=== PATIENT | male | born 1935 | race Caucasian/White ===

== ENCOUNTER 2016-09-08 11:47 | Inpatient (IN) | payer OTHER, MEDICARE ==
[~2016-09-08] VITALS: Ht 160 cm; Wt 81.6 kg
[~2016-09-08 11:47] MED LIST: ATORVASTATIN CA40 M1 PO; ATORVASTATIN CA40 MG PO; AUGMENTIN 875 M1 TAB PO; BACTRIM DS TAB1 EACH PO; CARBIDOPA AND L1 TA1 PO; CARBIDOPA-LEVO1 EAC7 PO; CENTRUM SILVER1 TAB PO; CLOPIDOGREL75 MG PO; FISH OIL CONCEN1 SGL PO; FUROSEMIDE20 MG PO; FUROSEMIDE40 M1 PO; GABAPENTIN300 M2 PO; GLIPIZIDE ER2.5 M1 PO; IRBESARTAN300 MG PO; LASIX40 M1 PO; LASIX40 MG PO; METFORMIN HCL500 MG PO; METOPROLOL SUCC25 M1 PO; METOPROLOL SUCC25 MG PO; PANTOPRAZOLE SO40 M1 PO; POTASSIUM CHLO20 ME2 PO; SERTRALINE HCL100 MG PO; VIBRAMYCIN100 MG PO
--- NOTE | 2016-09-08 11:51 | NUR ---
PT STATES HE TAKES LASIX AT HOME AND TOOK TODAYS DOSE, UNKNOWN DOSAGE
--- NOTE | 2016-09-08 11:51 | NUR ---
80 Y/O MALE STATES "I CAME TO GET LASIX". STATES SWELLING TO BILATERAL LEGS X 2-3 WEEKS. PT REPORTS WORSENING ITCHING TO LEGS; STATES HE CALLED HIS DOCTOR (DR CASTRO) AND WAS TOLD TO COME TO ED.
--- NOTE | 2016-09-08 12:25 | ED UPPER/LOWER EXTREMITY COMPL ---
See Addendum History of Present Illness General Chief Complaint: Lower Extremity Problems Stated Complaint: BILATERAL LEG SWELLING Source: patient, old records Exam Limitations: no limitations Vital Signs & Intake/Output Vital Signs & Intake/Output Vital Signs Date Time Temp Pulse Resp B/P Pulse O2 O2 Flow FiO2 Ox Delivery Rate 09/08 1614 94 18 185/89 95 09/08 1414 98.6 85 18 164/76 96 Room Air 09/08 1151 98.3 100 18 171/77 95 Room Air Allergies Uncoded Allergies: SOAP (Mild, RASH-DEODERANT SOAPS 03/10/15) Reconcile Medications Atorvastatin Calcium 40 MG TABLET 1 TAB PO DAILY CHOLESTEROL (Reported) Carbidopa/Levodopa (Carbidopa-Levodopa 25-100 Tab) 25 MG-100 MG TABLET 1 TAB PO BID PARKINSONS (Reported) Doxycycline Hyclate (Vibramycin) 100 MG CAPSULE 1 CAP PO BID INFN Furosemide 40 MG TABLET 2 TAB PO QAM DIURETIC (Reported) Furosemide (Lasix) 40 MG TABLET 1 TAB PO QPM DIURETIC (Reported) Gabapentin 300 MG CAPSULE 1 CAP PO QHS UNKNOWN (Reported) Glipizide (Glipizide ER) 2.5 MG TAB.ER.24 1 TAB PO BID DM (Reported) Metoprolol Succinate 25 MG TAB 1 TAB PO DAILY HEART/BP (Reported) Multivitamin and Ofioxgko238 (Centrum Silver) 1 TAB TAB 1 TAB PO DAILY SUPPLEMENT (Reported) Pantoprazole Sodium 40 MG TABLET.DR 1 TAB PO DAILY GI (Reported) Potassium Chloride 20 MEQ TAB.ER.PRT 1 TAB PO BID SUPPLEMENT (Reported) Sertraline HCl 100 MG TABLET 1 TAB PO DAILY MENTAL HEALTH (Reported) Triage Note: 80 Y/O MALE STATES "I CAME TO GET LASIX". STATES SWELLING TO BILATERAL LEGS X 2-3 WEEKS. PT REPORTS WORSENING ITCHING TO LEGS; STATES HE CALLED HIS DOCTOR (DR CASTRO) AND WAS TOLD TO COME TO ED. Triage Nurses Notes Reviewed? yes Onset: Gradual Duration: week(s): (1), constant, getting worse Timing: recent history Severity: moderate Severity Numbers: 7 Pain/Injury Location: Bilateral: Leg. Method of Injury: unknown No Modifying Factors: none Associated Symptoms: swelling, redness HPI: 80 Year old male with h/o htn, dm, hld, presents today for evaluation with his accounts payable coordinator complaining of bilateral leg pain and swelling. The patient was seen here last week for a right lower extremity cellulitis which she is currently on doxycycline for and states that it has been improving slowly however states that he noticed a new outbreak of redness warmth and pain to the left anterior santos. He was seen by his primary care physician earlier this week and was referred to the ER at that time for IV diuresis. He reports a subjective chills at home no fevers no chest pain no shortness of breath. No family history of congestive heart failure. He is on Lasix 40 mg a day . They state that the leg swelling has been chronic in nature however worse since the infection (KELLY BOWIE) Past History Travel History Traveled to [place] past 21 day No Medical History Any Pertinent Medical History? 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 Hx Contributory? No (KELLY BOWIE) Review of Systems Review of Systems Constitutional: Reports: no symptoms, see HPI. All Other Systems: Reviewed and Negative Comments Review of systems: See HPI, All other systems negative. Constitutional, no chills no fever, no malaise no weight loss HEENT: no sore throat no congestion, no ear pain Cardiovascular: No chest pain , no palpitation , no orthopnea no ankle swelling Skin, see HPI Respiratory: No dyspnea no cough no sputum no hemoptysis GI: No nausea no vomiting, no diarrhea, no bloating/constipation : No dysuria No hematuria, no frequency Muscle skeletal: No joint pain, no joint swelling, no back pain, no neck pain, Neurologic: No numbness no headache Psych: No stress no anxiety Heme/endocrine: No bruising no bleeding Immunology: No lymphadenopathy, (KELLY BOWIE) Physical Exam Physical Exam General Appearance: well developed/nourished, no apparent distress, alert Comments: Well-developed well-nourished person in no acute distress HEENT: Normal EENT exam; PERRL, EOMI. HEAD is atraumatic. moist mucous membranes. Neck: Supple, no lymphadenopathy, normal range of motion Back: Nontender, no CVA tenderness. Full range of motion Cardiovascular: Regular rate and rhythms no murmurs rubs Respiratory: Chest nontender.There were no bony deformities, no asymmetry. No respiratory distress. Patient speaking in full complete sentences. Breath sounds clear to auscultation bilaterally: NO W/R/R Abdomen: Soft, nontender nondistended, no appreciable organomegaly. Normal bowel sounds. No rebound/guarding, No appreciable enlargement of the abdominal aorta, No ascites. Extremity: 3+ edema to the right lower extremity 2+ edema to the left lower extremity, the anterior shins of bilateral lower extremities are erythematous warm tender to palpation with several blisters open and intact noted, full range of motion of extremities, 5 out of 5 strength noted to bilateral upper and lower extremities Neuro: Alert oriented x3, motor sensory normal, There were no obvious focal neurologic abnormalities. Skin: No appreciable rash on exposed skin, skin is warm and dry. Psych: Mood and affect is normal, memory and judgment is normal. (MARYBETH BROOKE,KELLY) Progress Differential Diagnosis: arterial insufficiency, CHF, contusion, DVT, sprain, ELECTROLYTE ABNORMALITY ACUTE KIDNEY INJURY Plan of Care: Orders Procedure Date/time Status Consistent Carbohydrate 3 09/09 B Active CBC WITHOUT DIFFERENTIAL 09/09 06 Active BASIC ELECTROLYTES PLUS BUN&CR 09/09 0600 Active Heart Healthy Diet 09/08 D Complete PHYSICIAN CONSULT 09/08 1831 Active Vital Signs 09/08 1729 Active Teach/Educate 09/08 1729 Active Nutritional Intake, Monitor 09/08 1729 Active Isolation 09/08 1729 Active Intake & Output 09/08 1729 Active Patient Care Conference 09/08 1729 Active Activity/Ambulation 09/08 1729 Active Pathway - chart 09/08 1628 Active Intake & Output 09/08 1500 Active Admit to inpatient 09/08 1423 Active Vital Signs 09/08 1423 Active Code Status 09/08 1423 Active Patient Data 09/08 1404 Active EKG 09/08 1326 Active BLOOD CULTURE 09/08 1239 Active COMPREHENSIVE METABOLIC PANEL 09/08 1218 Complete CBC WITHOUT DIFFERENTIAL 09/08 1217 Complete B-TYPE NATRIURETIC PEP (BNP) 09/08 121 Complete House Staff 09/08 UNK Active Wound Care/Dressing 09/08 UNK Active Elevate 09/08 UNK Active Current Medications Sig/Brent Start time Last Medication Dose Stop Time Status Admin Atorvastatin Calcium 40 MG DAILY 09/09 1000 AC (Lipitor) Furosemide 40 MG DAILY 09/09 1000 CANr (Lasix) 09/11 1001 Metoprolol Succinate 25 MG DAILY 09/09 1000 AC (Toprol XL) Sertraline HCl 100 MG DAILY 09/09 1000 AC (Zoloft) Omeprazole 40 MG DAILY AC 09/09 0700 AC (Prilosec) Ampicillin Sodium/ 1,500 MG Q12 09/08 2200 AC Sulbactam Sodium (Unasyn) Sodium Chloride 100 ML (Normal Saline 0.9%) Carbidopa/Levodopa 1 TAB BID 09/08 2200 AC (Sinemet 25/100MG) Gabapentin 300 MG AT BEDTIME 09/08 2200 AC (Neurontin) Heparin Sodium 5,000 UNIT Q8 09/08 2200 AC (Porcine) Acetaminophen 650 MG Q6P PRN 09/08 1630 AC (Tylenol) Hydromorphone HCl 0.5 MG Q4 PRN 09/08 1630 AC (Dilaudid) Oxycodone/ 1 TAB Q6P PRN 09/08 1630 AC Acetaminophen (Percocet) Laboratory Tests 09/08/16 1245: Anion Gap 13, Estimated GFR 32 L, BUN/Creatinine Ratio 14.0, Glucose 296 H, Calcium 9.0, Total Bilirubin 1.3, AST 21, ALT 22, Alkaline Phosphatase 136 H, Ytk-H-Svipupbpyub Pept 551 H, Total Protein 6.6, Albumin 3.6, Globulin 3.0, Albumin/Globulin Ratio 1.2, CBC w Diff NO MAN DIFF REQ, RBC 4.80, MCV 92.3, MCH 30.8, RDW 16.0 H, MPV 8.4, Gran % 64.1, Lymphocytes % 23.7, Monocytes % 8.7, Eosinophils % 2.9, Basophils % 0.6, Absolute Granulocytes 5.9, Absolute Lymphocytes 2.2, Absolute Monocytes 0.8 H, Absolute Eosinophils 0.3, Absolute Basophils 0.1, PUBS MCHC 33.4 Microbiology 09/08 1245 BLOOD: Blood Culture - RECD 09/08 1230 BLOOD: Blood Culture - RECD Labs ordered old records reviewed including patient's previous ultrasounds that showed no evidence of DVT. CASE D/W DR TAMAYO Old records reviewed patient's creatinine today is at baseline. I discussed with him at length all of his lab results given the patient lives at home alone worsening leg edema, and new rash to the left leg I believe premature discharge would BE medically harmful which she is in agreement with. I spoke with the patient's daughter over the phone. They are in agreement with plan (KELLY BOWIE) Diagnostic Imaging: Viewed by Me: Radiology Read. Discussed w/RAD: Radiology Read. Radiology Impression: PATIENT: BRINDA CHAVIRA PRESENT AGE: 80 PATIENT ACCOUNT NO: [id number] : 36 LOCATION: [facility] ORDERING PHYSICIAN: KELLY BROOKE SERVICE DATE: 09/08/16 EXAM TYPE: RAD - XRY- PORTABLE CHEST XRAY EXAMINATION: XR PORTABLE CHEST CLINICAL INFORMATION: Leg swelling. Malaise. COMPARISON: 03/10/2015 TECHNIQUE: Portable view of the chest was obtained. FINDINGS: Low lung volumes. No consolidation, edema, or effusion. No pneumothorax. The cardiomediastinal silhouette is unchanged, appearing prominent. Surgical clips are seen in the left cervical soft tissues. IMPRESSION : No acute pulmonary findings. Low lung volumes. DICTATED BY: KENYETTA PERSON MD DATE/TIME DICTATED:09/08/161321 FUEL EFFICIENT AUTOMOBILE DESIGNER:KENA DATE/TIME TRANSCRIBED:09/08/161321 CONFIDENTIAL, DO NOT COPY WITHOUT APPROPRIATE AUTHORIZATION. <Electronically signed in Other Vendor System> SIGNED BY: KENYETTA PERSON MD 09/08/161326 Initial ED EKG: normal intervals, normal p-waves, normal QRS complex, normal sinus rhythm (80) (KELLY BOWIE) Departure Departure Time of Disposition: 1407 Disposition: STILL A PATIENT Condition: Stable Clinical Impression Primary Impression: Cellulitis Secondary Impressions: Leg edema Referrals: LISSETT CASTRO MD (PCP/Family) Departure Forms: Customer Survey General Discharge Information Admission Note Spoke With: LEIA REAL MD Documentation of Exam: Documentation of any treatments & extenuating circumstances including Concerns Regarding Discharge (functional status, medication knowledge or non-compliance, living conditions, etc.) that warrant an admission rather than observation: Premature discharge would BE medically harmful given patient has been on a home course of antibiotics symptoms are worsening, despite being on home antibiotics and by mouth diuresis patient will require TRENDING labs IV diuresis IV antibiotics wound care consult] (MARYBETH BROOKE,KELLY) PA/MERCHANDISE WORKER Co-Sign Statement Statement: ED Attending supervision documentation- [X] I saw and evaluated the patient. I have also reviewed all the pertinent lab results and diagnostic results. I agree with the findings and the plan of care as documented in the PA's/MERCHANDISE WORKER's documentation. [] I have reviewed the ED Record and agree with the PA's/MERCHANDISE WORKER's documentation. [] Additions or exceptions (if any) to the PAs/MERCHANDISE WORKER's note and plan are summarized below: [] (SERGIO TAMAYO DO
--- NOTE | 2016-09-08 13:02 | NUR ---
PT NOTED TO HAVE REDNESS AND SWELLING TO BILATERAL LOWER EXTREMTIES. NOTED WITH OPEN WOUND TO TOP OF R YATES. +PEDAL PULSES BILATERALLY, PT C/O PAIN TO BILATERAL LOWER LEGS.
--- NOTE | 2016-09-08 13:15 | NUR ---
LABS DRAWN AND SENT AND 2 SETS OF CULTURES. BLUE,SST,LAV
[2016-09-08 13:23] LABS: ABSOLUTE BASOPHIL COUNT 0.1 /CUMM (0.0-0.2); ABSOLUTE EOSINOPHIL COUNT 0.3 /CUMM (0.0-0.7); ABSOLUTE GRANULOCYTE CT 5.9 /CUMM (1.4-6.5); ABSOLUTE LYMPH COUNT 2.2 /CUMM (1.2-3.4); ABSOLUTE MONOCYTE COUNT 0.8 /CUMM (0.10-0.60); BASOPHIL % 0.6 % (0.0-2.0); EOSINOPHIL % 2.9 % (0-5); GRANULOCYTE % 64.1 % (42.2-75.2); HEMATOCRIT 44.3 % (42-52); MEAN CORPUSCULAR HGB 30.8 PG (27.0-31.0); MEAN CORPUSCULAR HGB CONC 33.4 G/DL (33.0-37.0); MEAN CORPUSCULAR VOLUME 92.3 FL (80.0-94.0); MEAN PLATELET VOLUME 8.4 FL (7.4-10.4); PLATELET COUNT 205 /CUMM (130-400); WHITE BLOOD CELL COUNT 9.2 /CUMM (4.8-10.8)
--- NOTE | 2016-09-08 13:27 | RADIOLOGY REPORT ---
EXAMINATION: XR PORTABLE CHEST CLINICAL INFORMATION: Leg swelling. Malaise. COMPARISON: 03/10/2015 TECHNIQUE: Portable view of the chest was obtained. FINDINGS: Low lung volumes. No consolidation, edema, or effusion. No pneumothorax. The cardiomediastinal silhouette is unchanged, appearing prominent. Surgical clips are seen in the left cervical soft tissues. IMPRESSION: No acute pulmonary findings. Low lung volumes.
--- NOTE | 2016-09-08 14:14 | NUR ---
PT MEDICATED PER EMAR AT THIS TIME. PT RESTING ON STRETCHER, AWARE OF PLAN FOR ADMISSION.
--- NOTE | 2016-09-08 14:27 | History & Physical ---
ANILA ZARCO,[facility] 09/08/16 1427: General Information and HPI History of Present Illness: Mr. Layne is a 79-year-old gentleman with a past medical history significant for PVD, CAD s/p right carotid artery endarterectomy, HTN, HLD, stroke, NIDDM, CKD stage 3B, Parkinson's disease and depression, last admitted in [place] in March 2015 for chronic venous insufficiency, who presented with a new onset of erythema and edema with mild tenderness and pruritis in the left lower extremity since yesterday. Patient presented to [place] ED on 08/30 and 09/01 with cellulitis of the RLE. He was discharged back on doxycycline which he had already been prescribed by Dr. Castro outpatient. He reports that he has been taking the antibiotics since 08/30/[address] [facility] up until today (patient unsure how many days). Patient feels that the cellulitis in his right leg has been improving but it is still weeping with blisters. He takes Lasix 80mg in the morning and 40mg at night for CVI but his legs are more swollen than his baseline per the patient. He follows up with Dr. Blanco for his leg wounds but has not seen him in a long time (can't remember how long). Patient denies any fever, chills, chest pain/discomfrt, palptiations, shortness of breath, abdominal pain, nausea, vomiting, recent sick contact/illness/travel. Patient lives alone at home. He has 2 aids who help him with daily activities including cooking and grocery shopping. He uses walker at home. He denies any alcohol/tobacco/recreational drug use. Of note, patient is a poor historian. A significant amount of history was gathered from the previous medical records. PCP - Dr. Castro Wound care - Dr. Blanco Air Intercept Controller - Dr. Christian Allergies/Medications Allergies: Uncoded Allergies: SOAP (Mild, RASH-DEODERANT SOAPS 03/10/15) Home Med list Atorvastatin Calcium 40 MG TABLET 1 TAB PO DAILY CHOLESTEROL (Reported) Carbidopa/Levodopa (Carbidopa-Levodopa 25-100 Tab) 25 MG-100 MG TABLET 1 TAB PO BID PARKINSONS (Reported) Doxycycline Hyclate (Vibramycin) 100 MG CAPSULE 1 CAP PO BID INFN Furosemide 40 MG TABLET 2 TAB PO QAM DIURETIC (Reported) Furosemide (Lasix) 40 MG TABLET 1 TAB PO QPM DIURETIC (Reported) Gabapentin 300 MG CAPSULE 1 CAP PO QHS UNKNOWN (Reported) Glipizide (Glipizide ER) 2.5 MG TAB.ER.24 1 TAB PO BID DM (Reported) Metoprolol Succinate 25 MG TAB 1 TAB PO DAILY HEART/BP (Reported) Multivitamin and Lgovmtim399 (Centrum Silver) 1 TAB TAB 1 TAB PO DAILY SUPPLEMENT (Reported) Pantoprazole Sodium 40 MG TABLET.DR 1 TAB PO DAILY GI (Reported) Potassium Chloride 20 MEQ TAB.ER.PRT 1 TAB PO BID SUPPLEMENT (Reported) Sertraline HCl 100 MG TABLET 1 TAB PO DAILY MENTAL HEALTH (Reported) Past History Travel History Traveled to [place] past 21 day No Medical History Neurological: CVA, essential tremor EENT: NONE Cardiovascular: CAD, hypertension, hyperlipidemia, PVD Respiratory: NONE Gastrointestinal: NONE Hepatic: cholelithiasis Renal: NONE Musculoskeletal: NONE Psychiatric: insomnia Endocrine: diabetes Blood Disorders: NONE Cancer(s): NONE 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 Psychosocial History Where do you live? Home Who Do You Live With? child Services at Home: None Primary Language: Telugu ETOH Use: denies use Illicit Drug Use: denies illicit drug use Functional Ability ADLs Independent: eating. Needs Assist: dressing, toileting, bathing. Ambulation: walker IADLs Independent: telephone. Needs Assist: shopping, housework, finances, food prep, transportation, medication admin. Review of Systems Review of Systems Constitutional: Reports: see HPI. Exam & Diagnostic Data Last 24 Hrs of Vital Signs/I&O Vital Signs Date Time Temp Pulse Resp B/P Pulse O2 O2 Flow FiO2 Ox Delivery Rate 09/08 1414 98.6 85 18 164/76 96 Room Air 09/08 1151 98.3 100 18 171/77 95 Room Air Intake & Output 09/08 1600 09/08 0800 09/08 0000 Intake Total Output Total 200 Balance -200 Output, Urine 200 Patient 81.647 kg Weight Physical Exam General Appearance Alert, Oriented X3, Cooperative, No Acute Distress Skin - RLE: circumferential erythema with weeping wounds with size decreased from previous visit about a week ago; 2+ pitting edema with no TTP. Constanza's sign negative. - LLE: small erythema with warmth to touch and no TTP. 1+ pitting edema. No active drainage or weeping. HEENT Atraumatic, PERRLA, EOMI, Mucous Membr. moist/pink Neck Supple, No JVD, No LAD Cardiovascular Regular Rate, Normal S1, Normal S2, No Murmurs, Gallops, Rubs Lungs Clear to Auscultation, Normal Air Movement Abdomen Normal Bowel Sounds, Soft, No Tenderness Neurological Normal Speech, Strength at 5/5 X4 Ext, Sensation Intact, Cranial Nerves 3-12 NL Extremities No Cyanosis, Normal Pulses, 2+ pitting edema in RLE, 1+ in LLE Assessment/Plan Assessment: Mr. Layne is a 79-year-old gentleman with a past medical history significant for PVD, CAD s/p right carotid artery endarterectomy, HTN, HLD, stroke, NIDDM, CKD stage 3B, Parkinson's disease and depression, last admitted in [place] in March 2015 for chronic venous insufficiency, who presented with a new onset of erythema and edema with mild tenderness and pruritis in the left lower extremity for 1 day, most likely 2/2 cellulitis. # Cellulitis His lower extremity edema and erythema are most likely 2/2 cellulitis superimposed on chronic erythematous vesicular lesions in the setting of chronic venous insufficiency/edema. Patient received 1 doses of IV Lasix 40mg in ED. * Admit to General Medicine floor * Vitals per protocol, monitor hemodynamics * Keep oxygen saturation more than 92% * Keep legs elevated * Give another dose of Lasix 40 mg IV - adjust the dose tomorrow depending on clinical status and renal function * Wound consult * Adequate pain control with IV Dilaudid 0.4mg Q4P severe pain and Percocet 1tab Q6P moderate pain * Doppler venous of both LEs - r/o DVT # Cardiac history: HTN, HLD Patient has a h/o hypertension. In the ED patient's systolic blood pressure is in the range of 160-180s. * Continue home med metoprolol XL 25 mg daily * Continue home med Lipitor 40 mg daily * Lasix as per above-mentioned plan # Diabetes * Novolog SSI with accuchecks before each meal and at bedtime * Diabetic diet * Cont home med gabapentin 300mg PO qHS for neuropathic pain # History of Parkinson's disease & Depression * Cont home med Carbidopa/Levodopa 1 tab QD * Cont home med Zoloft 100mg PO daily - Diabetic diet - Mild pain pathway - DVT prophylaxis: SQ heparin - DNR/DN As Ranked By This Provider Problem List: 1. Leg edema 2. Hypertension 3. Diabetes 4. DVT prophylaxis 5. Parkinson disease 6. Venous stasis dermatitis of both lower extremities 7. Hypokalemia 8. Cellulitis 9. Chronic ulcer of leg 10. Cellulitis 11. Dependent edema 12. Leg edema Core Measures/Miscellaneous Acute Coronary Syndrome ACS Diagnosis: No Cerebrovascular Accident CVA/TIA Diagnosis: No Congestive Heart Failure CHF Diagnosis: No Venous Thromboembolism VTE Risk Factors: Age > 40 VTE Prophylaxis Ordered Inpt: Pharm- Heparin No Mech VTE prophylaxis d/t: LE Edema No VTE Pharm Prophylaxis d/t: No contraindications VTE Diagnosis: No VTE Type: NONE VTE Confirmed by (Test): NONE Severe Sepsis Severe Sepsis Present: No Septic Shock Septic Shock Present: No Miscellaneous Documentation Attending Case Discussed With: LEIA REAL MD Primary Care Physician: LISSETT CASTRO MD A Patient sees these Specialists Dr. Blanco for wound Level of Patient Care: General Medicine JAMAAL ZARCO,[facility] 09/08/16 1755: Attending MD Review Statement Attending Statement Attending MD Statement: examined this patient, discuss w/resident/PA/BOATSWAIN'S MATE, agreed w/resident/PA/BOATSWAIN'S MATE, reviewed EMR data (avail), discussed with nursing, discussed with case mgmt, amended to note Attending Assessment/Plan: Patient is an 81-year-old male with history of extensive vascular disease who presents with complaints of right lower extremity erythema and edema that has been going on since August 30. He had similar presentation in January 2016. Though he does admit to some improvement of the erythema in the right lower extremity since initiating antibiotic therapy reports arthritis has only worsened leading to significant excoriation huber and now he is developing a similar rash under left lower extremity. According to the patient swelling and excretion associated that the elevated is ambulatory status post his presentation to the emergency room again. This huber his third visit to the ER. It is noted that he does have a history of dermatitis for which he is to see a cash register servicer in the past. On examination he is afebrile and hemodynamically stable. He is nontoxic looking. He has bilateral lower extremity edema with extensive erythema, excoriation huber and some peeling of the skin on the right lower extremity. The area of erythema however has improved compared to the area marked during his prior ER visits. He also has a mild area of erythema along the left santos which the patient reports as being new. Laboratory data shows evidence of his chronic kidney disease. He has no leukocytosis. Due to limitation of his ambulatory status was referred inpatient medical service for further management. Problems: 1. Bilateral lower extremity cellulitis 2. Deconditioning 3. Chronic kidney disease stage III Recommendations: -Admit to the inpatient general service for further management. -Due to the new area of erythema developing left lower extremity would treat empirically with IV antibiotics for now and reevaluate over the weekend. -His bilateral lower extremity edema is likely contributing to his skin changes. We'll diurese with Lasix IV for now. He is on a total of 120 mg daily at home. We'll diurese with an additional 40 mg IV of Lasix today and reevaluate his clinical status and renal function tomorrow before further diuresis. -Dopplers of bilateral lower extremities to rule out DVT. -DVT prophylaxis with heparin subcutaneous. MIN FREED MD 09/08/166: Resident Review Statement Resident Statement: examined this patient, discussed with transportation logistics internship, agreed with transportation logistics internship Other Findings: Assessment 1. Cellulitis of both lower extremities (with weeping Ulcers) 2. T2 DM 3. Parkinson's disease 4. PVD 5. Stage 3B CKD Plan Admit to IV Unasyn Blood cultures x 2 Novolog SS Fingersticks TIDAC/HS Wound care consult IV lasix 40mg BID-monitor creatinine daily due to CKD Daily labs Continue his home medications PO benadryl-for itching of the LEs Adequate analgesia PT SQ heparin for DVT ppx Diabetic diet
--- NOTE | 2016-09-08 16:16 | NUR ---
PT RESTING ON STRETCHER, DINNER TRAY PROVIDED. PT OFFERS NO COMPLIANTS AT THIS TIME.
--- NOTE | 2016-09-08 16:34 | NUR ---
PT HAS BED ASSIGNMENT 209-1
--- NOTE | 2016-09-08 16:49 | NUR ---
REPORT GIVEN TO MYRNA SOSA.
--- NOTE | 2016-09-08 16:51 | NUR ---
DISTRIBUTION CALLED FOR PT TRNASPORT
[2016-09-08 19:17] VITALS: BP 152/80
--- NOTE | 2016-09-08 23:44 | ULTRASOUND REPORT ---
EXAMINATION: US TRIPLEX LOWER EXTREMITY, BILATERAL CLINICAL INFORMATION: Edema. Leg tenderness. COMPARISON: None. TECHNIQUE: Color-flow triplex imaging with spectral analysis and compression Doppler were performed on the bilateral lower extremities. FINDINGS: Respiratory variation, normal compression and augmented flow are noted throughout the bilateral lower extremities. The visualized common femoral vein, superficial femoral vein, profunda femoral vein, popliteal vein and mid calf peroneal and posterior tibial venous segments show no evidence of deep venous thrombosis. There is no Marr's cyst. IMPRESSION: Normal triplex scan without evidence of deep venous thrombosis involving the bilateral lower extremities.
--- NOTE | 2016-09-09 00:08 | NUR ---
PATIENT ARRIVED TO FLOOR AT 1708 FROM ER, DX CELLULITIS VS 98.2 93 22 152/80 91% ROOM AIR A&O, CAN BE CONFUSED AT TIMES, INDEPENDENT WITH CANE, UNSTEADY, BED ALARM IN PLACE BLE RED, ABRASIONS, CELLULITIC AREAS, R YATES OPEN AREA; KEEPING ALL FRANCISCO AT THIS TIME; +1 BLE EDEMA; OTHERWISE SKIN INTACT WILL USE URINAL, MAY BE INCONTINENT, BRIEF ON, PT STATES HE WEARS ONE AT HOME IV # 20 TO LH ORIENTED TO ROOM AND CALL GONSALEZ CONTINUE TO MONITOR
[2016-09-09 00:30] VITALS: BP 144/64
--- NOTE | 2016-09-09 07:28 | PN- Housestaff ---
See Addendum Subjective Follow-up For: Cellulitis Subjective: Patient seen and examined at bedside. No acute events overnight. His wound look slightly better with no active drainage/weeping. Patient reports feeling well with no new complaints. He remains alert, awake and oriented x 3, in no acute distress. Denies shortness of breath, cough, headache, fever, chills, chest pain , palpitations, nausea, vomiting, diarrhea, blurred/double vision, dizziness/ lightheadedness. Review of Systems Constitutional: Reports: see HPI. Objective Last 24 Hrs of Vital Signs/I&O Vital Signs Date Time Temp Pulse Resp B/P Pulse O2 O2 Flow FiO2 Ox Delivery Rate 09/09 0955 92 120/82 09/09 0832 98.1 93 20 140/75 92 Room Air 09/09 0030 98.1 89 20 144/64 95 09/08 1917 98.2 93 22 152/80 91 09/08 1614 94 18 185/89 95 09/08 1414 98.6 85 18 164/76 96 Room Air 09/08 1151 98.3 100 18 171/77 95 Room Air Intake & Output 09/09 1600 09/09 0800 09/09 0000 Intake Total 600 500 Output Total 325 1000 Balance 275 -500 Intake, Oral 600 500 Output, Urine 325 1000 Patient 81.647 kg Weight Physical Exam General Appearance: Alert, Oriented X3, Cooperative, No Acute Distress Other Physical Findings: Skin - RLE: circumferential erythema with weeping wounds with size decreased from previous visit about a week ago; 2+ pitting edema with no TTP. Constanza's sign negative. - LLE: small erythema with warmth to touch and no TTP. 1+ pitting edema. No active drainage or weeping. HEENT Atraumatic, PERRLA, EOMI, Mucous Membr. moist/pink Neck Supple, No JVD, No LAD Cardiovascular Regular Rate, Normal S1, Normal S2, No Murmurs, Gallops, Rubs Lungs Clear to Auscultation, Normal Air Movement Abdomen Normal Bowel Sounds, Soft, No Tenderness Neurological Normal Speech, Strength at 5/5 X4 Ext, Sensation Intact, Cranial Nerves 3-12 NL Extremities No Cyanosis, Normal Pulses, 2+ pitting edema in RLE, 1+ in LLE Current Medications: Current Medications Sig/Brent Start time Last Medication Dose Route Stop Time Status Admin Acetaminophen 650 MG Q6P PRN 09/08 1630 AC PO Ampicillin Sodium/ 1,500 MG Q12 09/08 2200 AC 09/09 Sulbactam Sodium IV 0956 Sodium Chloride 100 ML Ampicillin Sodium/ 1,500 MG ONCE ONE 09/08 1415 DC 09/08 Sulbactam Sodium IV 09/08 1444 1414 Sodium Chloride 100 ML Ampicillin Sodium/ 0 .STK-MED ONE 09/08 1409 DC Sulbactam Sodium .ROUTE Atorvastatin Calcium 40 MG DAILY 09/09 1000 AC 09/09 PO 0955 Carbidopa/Levodopa 1 TAB BID 09/08 2200 AC 09/09 PO 0955 Diphenhydramine HCl 25 MG Q6P PRN 09/09 0100 AC PO Furosemide 40 MG DAILY 09/09 1000 CAN IV 09/11 1001 Furosemide 40 MG ONCE ONE 09/08 1730 DC 09/08 IV 09/08 1731 1958 Furosemide 0 .STK-MED ONE 09/08 1409 DC IV Furosemide 40 MG ONCE ONE 09/08 1400 DC 09/08 IV 09/08 1401 1414 Gabapentin 300 MG AT BEDTIME 09/08 2200 AC 09/08 PO 2104 Heparin Sodium 5,000 UNIT Q8 09/08 2200 AC 09/09 (Porcine) SC 0700 Hydromorphone HCl 0.5 MG Q4 PRN 09/08 1630 AC IV Influenza Virus 0.5 ML ONCE ONE 09/08 2014 DC 09/08 Vaccine IM 09/08 2015 2105 Insulin Aspart 0 TIDAC/HS 09/09 0800 AC SC Metoprolol Succinate 25 MG DAILY 09/09 1000 AC 09/09 PO 0955 Omeprazole 40 MG DAILY AC 09/09 0700 AC 09/09 PO 0822 Oxycodone/ 1 TAB Q6P PRN 09/08 1630 AC Acetaminophen PO Patient Medication 1 UNIT ONE NR 09/08 1715 ME Teaching ED 09/08 1730 Patient Medication 1 UNIT ONE NR 09/08 1715 ME Teaching ED 09/08 1730 Patient Medication 1 UNIT ONE NR 09/08 1715 ME Teaching ED 09/08 1730 Patient Medication 1 UNIT ONE NR 09/08 1645 ME Teaching ED 09/08 1700 Patient Medication 1 UNIT ONE NR 09/08 1645 ME Teaching ED 09/08 1700 Sertraline HCl 100 MG DAILY 09/09 1000 AC 09/09 PO 0955 Last 24 Hrs of Lab/Corky Results Last 24 Hrs of Labs/Mics: Laboratory Tests 09/08/16 1245: Anion Gap 13, Estimated GFR 32 L, BUN/Creatinine Ratio 14.0, Glucose 296 H, Calcium 9.0, Total Bilirubin 1.3, AST 21, ALT 22, Alkaline Phosphatase 136 H, Buu-E-Tgznnwcmbcm Pept 551 H, Total Protein 6.6, Albumin 3.6, Globulin 3.0, Albumin/Globulin Ratio 1.2, CBC w Diff NO MAN DIFF REQ, RBC 4.80, MCV 92.3, MCH 30.8, RDW 16.0 H, MPV 8.4, Gran % 64.1, Lymphocytes % 23.7, Monocytes % 8.7, Eosinophils % 2.9, Basophils % 0.6, Absolute Granulocytes 5.9, Absolute Lymphocytes 2.2, Absolute Monocytes 0.8 H, Absolute Eosinophils 0.3, Absolute Basophils 0.1, PUBS MCHC 33.4 Microbiology 09/08 1245 BLOOD: Blood Culture - RECD 09/08 1230 BLOOD: Blood Culture - RECD Assessment/Plan Assessment: Mr. Layne is a 79-year-old gentleman with a past medical history significant for PVD, CAD s/p right carotid artery endarterectomy, HTN, HLD, stroke, NIDDM, CKD stage 3B, Parkinson's disease and depression, last admitted in [place] in March 2015 for chronic venous insufficiency, who presented with a new onset of erythema and edema with mild tenderness and pruritis in the left lower extremity for 1 day, most likely 2/2 cellulitis. # Cellulitis His lower extremity edema and erythema are most likely 2/2 cellulitis superimposed on chronic erythematous vesicular lesions in the setting of chronic venous insufficiency/edema. Patient received 1 doses of IV Lasix 80mg yesterday. Swelling is slightly better this morning. * Vitals per protocol, monitor hemodynamics * Keep legs elevated * Continue IV Lasix, dose to be determined depending on the renal function today * Wound consult * Adequate pain control with IV Dilaudid 0.4mg Q4P severe pain and Percocet 1tab Q6P moderate pain * Doppler venous of both LEs - no evidence of DVT # Cardiac history: HTN, HLD Patient has a h/o hypertension. In the ED patient's systolic blood pressure is in the range of 160-180s. * Continue home med metoprolol XL 25 mg daily * Continue home med Lipitor 40 mg daily * Lasix as per above-mentioned plan # Diabetes * Novolog SSI with accuchecks before each meal and at bedtime * Diabetic diet * Cont home med gabapentin 300mg PO qHS for neuropathic pain # History of Parkinson's disease & Depression * Cont home med Carbidopa/Levodopa 1 tab QD * Cont home med Zoloft 100mg PO daily - Diabetic diet - Mild pain pathway - DVT prophylaxis: SQ heparin - DNR/DN Problem List: 1. Leg edema 2. Chronic ulcer of leg 3. Cellulitis 4. Venous stasis dermatitis of both lower extremities 5. Diabetes 6. DVT prophylaxis 7. Parkinson disease 8. Hypertension Pain Ratin Pain Location: 0 Pain Goal: Remain pain free Pain Plan: Mild pain pathway Tomorrow's Labs & Rationales: CBC to monitor for signs of infection
[2016-09-09 08:32] VITALS: BP 140/75
[2016-09-09 12:33] LABS: ABSOLUTE BASOPHIL COUNT 0 /CUMM (0.0-0.2); ABSOLUTE EOSINOPHIL COUNT 0.2 /CUMM (0.0-0.7); ABSOLUTE GRANULOCYTE CT 6.6 /CUMM (1.4-6.5); ABSOLUTE LYMPH COUNT 0.9 /CUMM (1.2-3.4); ABSOLUTE MONOCYTE COUNT 0.6 /CUMM (0.10-0.60); BASOPHIL % 0.3 % (0.0-2.0); EOSINOPHIL % 2.6 % (0-5); GRANULOCYTE % 79.2 % (42.2-75.2); HEMATOCRIT 43.4 % (42-52); MEAN CORPUSCULAR HGB 30.6 PG (27.0-31.0); MEAN CORPUSCULAR VOLUME 92.6 FL (80.0-94.0); MEAN PLATELET VOLUME 8.4 FL (7.4-10.4); PLATELET COUNT 144 /CUMM (130-400); RED BLOOD CELL CT 4.69 /CUMM (4.70-6.10); WHITE BLOOD CELL COUNT 8.3 /CUMM (4.8-10.8)
[2016-09-09 16:10] VITALS: BP 130/64
[2016-09-10 00:02] VITALS: BP 132/60
[2016-09-10 08:30] VITALS: BP 130/57
--- NOTE | 2016-09-10 08:59 | PN- Housestaff ---
CHAY ZARCO,[facility] 09/10/16 0859: Subjective Follow-up For: Cellulitis Review of Systems Constitutional: Reports: see HPI. Objective Last 24 Hrs of Vital Signs/I&O Vital Signs Date Time Temp Pulse Resp B/P Pulse O2 O2 Flow FiO2 Ox Delivery Rate 09/10 1002 82 124/76 09/10 0830 98.5 87 20 130/57 94 Room Air 09/10 0002 98.3 94 20 132/60 91 09/09 1610 98.6 92 20 130/64 92 Room Air Intake & Output 09/10 1600 09/10 0800 09/10 0000 Intake Total 200 Output Total Balance 200 Intake, Oral 200 Physical Exam General Appearance: Alert, Oriented X3, Cooperative Skin: right lower extremity circumferential erythema with beeping wounds Cardiovascular: Regular Rate, Normal S1, Normal S2 Lungs: Clear to Auscultation, Normal Air Movement Abdomen: Normal Bowel Sounds, Soft, No Tenderness Neurological: Normal Speech, Strength at 5/5 X4 Ext Extremities: No Clubbing, No Cyanosis, 2+ edemand right lower leg and 1+ edema in left lower extremity Current Medications: Current Medications Sig/Brent Start time Last Medication Dose Route Stop Time Status Admin Acetaminophen 650 MG Q6P PRN 09/08 1630 AC PO Ampicillin Sodium/ 1,500 MG Q12H 09/10 1300 AC Sulbactam Sodium IV Sodium Chloride 100 ML Ampicillin Sodium/ 1,500 MG Q12 09/08 2200 DC 09/10 Sulbactam Sodium IV 0100 Sodium Chloride 100 ML Atorvastatin Calcium 40 MG DAILY 09/09 1000 AC 09/10 PO 1002 Carbidopa/Levodopa 1 TAB BID 09/08 2200 AC 09/10 PO 1002 Diphenhydramine HCl 25 MG Q6P PRN 09/09 0100 AC PO Furosemide 40 MG DAILY 09/09 1800 AC 09/10 IV 1002 Gabapentin 300 MG AT BEDTIME 09/08 2200 AC 09/10 PO 0641 Heparin Sodium 5,000 UNIT Q8 09/08 2200 AC 09/10 (Porcine) SC 0641 Hydromorphone HCl 0.5 MG Q4 PRN 09/08 1630 AC IV Insulin Aspart 0 TIDAC 09/10 1200 CAN SC Insulin Aspart 0 TIDAC 09/10 1200 AC 09/10 SC 1026 Insulin Aspart 0 TIDAC/HS 09/09 0800 DC 09/09 SC 2100 Insulin Aspart Prota 2 UNIT ONCE ONE 09/10 1030 DC 09/10 70%/Aspart 30% SC 09/10 1031 1029 Metoprolol Succinate 25 MG DAILY 09/09 1000 AC 09/10 PO 1002 Omeprazole 40 MG DAILY AC 09/09 0700 AC 09/10 PO 0641 Oxycodone/ 1 TAB Q6P PRN 09/08 1630 AC Acetaminophen PO Patient Medication 1 UNIT ONE NR 09/09 1830 DC Teaching ED 09/09 1900 Potassium Chloride 60 MEQ ONCE ONE 09/10 1000 DC 09/10 PO 09/10 1001 1004 Sertraline HCl 100 MG DAILY 09/09 1000 AC 09/10 PO 1002 Last 24 Hrs of Lab/Corky Results Last 24 Hrs of Labs/Mics: Laboratory Tests 09/10/16 0710: Anion Gap 13, Estimated GFR 34 L, BUN/Creatinine Ratio 14.7 Assessment/Plan Assessment: Mr. Layne is a 79-year-old gentleman with a past medical history significant for PVD, CAD s/p right carotid artery endarterectomy, HTN, HLD, stroke, NIDDM, CKD stage 3B, Parkinson's disease and depression, last admitted in [place] in March 2015 for chronic venous insufficiency, who presented with a new onset of erythema and edema with mild tenderness and pruritis in the left lower extremity for 1 day, most likely 2/2 cellulitis. # Cellulitis His lower extremity edema and erythema are most likely 2/2 cellulitis superimposed on chronic erythematous vesicular lesions in the setting of chronic venous insufficiency/edema. Patient received 1 doses of IV Lasix 80mg yesterday. Swelling is slightly better this morning. * Vitals per protocol, monitor hemodynamics * Keep legs elevated * Continue IV Lasix, dose to be determined depending on the renal function today * Wound consult * Adequate pain control with IV Dilaudid 0.4mg Q4P severe pain and Percocet 1tab Q6P moderate pain * Doppler venous of both LEs - no evidence of DVT # Cardiac history: HTN, HLD Patient has a h/o hypertension. In the ED patient's systolic blood pressure is in the range of 160-180s. * Continue home med metoprolol XL 25 mg daily * Continue home med Lipitor 40 mg daily * Lasix as per above-mentioned plan # Diabetes * Novolog SSI with accuchecks before each meal and at bedtime * Diabetic diet * Cont home med gabapentin 300mg PO qHS for neuropathic pain # History of Parkinson's disease & Depression * Cont home med Carbidopa/Levodopa 1 tab QD * Cont home med Zoloft 100mg PO daily - Diabetic diet - Mild pain pathway - DVT prophylaxis: SQ heparin - DNR/DN Problem List: 1. Venous stasis dermatitis of both lower extremities 2. Parkinson disease 3. DVT prophylaxis 4. Cellulitis 5. Chronic ulcer of leg 6. Hypertension Pain Ratin Pain Location: None Pain Goal: Remain pain free Pain Plan: Mildly any pathway Tomorrow's Labs & Rationales: none CHAY ZARCO,[facility] 09/10/16 1539: Attending MD Review Statement Attending Statement Attending MD Statement: examined this patient, discuss w/resident/PA/SHIPPING SPECIALIST, agreed w/resident/PA/SHIPPING SPECIALIST, discussed with nursing, reviewed images Attending Assessment/Plan: 79-year-old male with past medical history significant for peripheral vascular disease, coronary artery disease status post right carotid artery endarterectomy , hypertension, hyperlipidemia, stroke, and IDDM, CK D, Parkinson disease, depression is being admitted with lower extremity cellulitis for which he is currently receiving IV antibiotics. He is also diuresed gently given his underlying CKD. His lower extremity cellulitis seems to be improving. His kidney functions remained stable. His lower extremity Dopplers was negative for clots. We'll continue to diurese him as his kidney functions are improving. Potassium was replaced today, please follow-up tomorrow's chemistry for potassium and Cr.
--- NOTE | 2016-09-10 14:27 | RADIOLOGY REPORT ---
EXAMINATION: XR PORTABLE CHEST CLINICAL INFORMATION: Choking on food COMPARISON: 09/08/2016 and 03/06/2015 TECHNIQUE: AP portable semiupright view of the chest. Lordotic positioning. FINDINGS: Low lung volumes. No definite aspiration pneumonia. Chest wall structures obscure the lung bases. Patient rotated. Grossly stable prominence of the heart and mediastinum. IMPRESSION: Technically limited exam without focal aspiration or pneumonia identified.
[2016-09-10 15:55] VITALS: BP 140/64
--- NOTE | 2016-09-10 23:18 | NUR ---
FINGER STICK 298. ADDRESSED WITH DR. PORRAS PATIENT DOES NOT HAVE A BEDTIME SCALE.
[2016-09-11 00:12] VITALS: BP 138/60
--- NOTE | 2016-09-11 08:24 | Cons- Wound Care ---
General Information and HPI Consulting Request Date of Consult: 09/11/16 Requested By: BHAVESH HINTON M.D Reason for Consult: Concern over right lower extremity cellulitis History of Present Illness: Patient is 80-year-old with type 2 diabetes Parkinson's disease chronic venous insufficiency who is had right lower extremity venous stasis ulcers in the past. He's been treated with multiple courses of antibiotics for suspected right lower extremity cellulitis in the setting of edema. He reportedly has history of peripheral vascular disease. He's had no fever or leukocytosis. Allergies/Medications Allergies: Uncoded Allergies: SOAP (Mild, RASH-DEODERANT SOAPS 03/10/15) Home Med List: Atorvastatin Calcium 40 MG TABLET 1 TAB PO DAILY CHOLESTEROL (Reported) Carbidopa/Levodopa (Carbidopa-Levodopa 25-100 Tab) 25 MG-100 MG TABLET 1 TAB PO BID PARKINSONS (Reported) Doxycycline Hyclate (Vibramycin) 100 MG CAPSULE 1 CAP PO BID INFN Furosemide 40 MG TABLET 2 TAB PO QAM DIURETIC (Reported) Furosemide (Lasix) 40 MG TABLET 1 TAB PO QPM DIURETIC (Reported) Gabapentin 300 MG CAPSULE 1 CAP PO QHS UNKNOWN (Reported) Glipizide (Glipizide ER) 2.5 MG TAB.ER.24 1 TAB PO BID DM (Reported) Metoprolol Succinate 25 MG TAB 1 TAB PO DAILY HEART/BP (Reported) Multivitamin and [id number] (Centrum Silver) 1 TAB TAB 1 TAB PO DAILY SUPPLEMENT (Reported) Pantoprazole Sodium 40 MG TABLET.DR 1 TAB PO DAILY GI (Reported) Potassium Chloride 20 MEQ TAB.ER.PRT 1 TAB PO BID SUPPLEMENT (Reported) Sertraline HCl 100 MG TABLET 1 TAB PO DAILY MENTAL HEALTH (Reported) Review of Systems Review of Systems: Patient denies claudication Past History Travel History Traveled to [place] past 21 day No Medical History Blood Transfusion Hx: No Neurological: CVA, essential tremor EENT: NONE Cardiovascular: CAD, hypertension, hyperlipidemia, PVD Respiratory: NONE Gastrointestinal: NONE Hepatic: cholelithiasis Renal: NONE Musculoskeletal: NONE Psychiatric: insomnia Endocrine: diabetes Blood Disorders: NONE Cancer(s): NONE 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 Psychosocial History Where Do You Live? Home Who Do You Live With? child Services at Home: Home Health Aide Primary Language: Singaporean Smoking Status: Former Smoker ETOH Use: denies use Illicit Drug Use: denies illicit drug use Functional Ability ADLs Independent: eating. Needs Assist: dressing, toileting, bathing. Ambulation: walker IADLs Independent: telephone. Needs Assist: shopping, housework, finances, food prep, transportation, medication admin. Exam & Diagnostic Data Vital Signs and I&O Vital Signs Result Date Time Pulse Ox 94 09/11 001 B/P 138/60 09/11 001 O2 Delivery Room Air 09/11 11 Temp 97.9 09/11 11 Pulse 82 09/11 001 Resp 18 09/11 001 O2 Flow Rate 2.0L 09/11 0000 Intake & Output 09/11 0000 09/10 1600 09/10 0800 Intake Total 300 940 Output Total Balance 300 940 Intake, IV 100 100 Intake, Oral 200 840 Exam of both legs show evidence of prior edema which is reduced with bedrest and diuresis. Distal pulses are absent. Palpation. There is 1+ right leg pitting edema. There is mild sensory neuropathy. Exam of the anterior right leg shows there to be a 2 x 1.5 cm unstageable ulcer with dry slough there multiple small scabs over both legs due to patient scratching. There is faint bilateral erythema right greater than left without warmth. Assessment/Plan Impression/Plan: 80-year-old gentleman with probable peripheral vascular disease secondary to diabetes and chronic venous insufficiency has a nonhealing ulcer of the right lower extremity present on admission. The chronic erythema is likely related to venous insufficiency rather than cellulitis. Patient requires further evaluation of peripheral vascular disease. Wound care can be Xeroform and gauze to soften slough with daily cleansing and leg elevation. Consult Acknowledgment - Thank you for your consult request.
[2016-09-11 08:39] VITALS: BP 136/60
[2016-09-11] MEDS ORDERED: KEFLEX500 M1 PO ×2 (10:03→10:17)
--- NOTE | 2016-09-11 10:11 | NUR ---
PATIENT 92% ON RA AT REST; WHILE AMBULATING IN HALLWAY PATIENT SATURATING 84-88% ON RA; PATIENT DENIES SHORTNESS OF BREATH; ASSISTED BACK TO BED; PATIENT NOW 92% RA AT REST; WILL CONTINUE TO MONITOR PATIENT;
[2016-09-11] MEDS ORDERED: DIPHENHYDRAMINE25 M4 PO (10:17)
--- NOTE | 2016-09-11 10:21 | Patient Discharge Instructions ---
Discharge Instructions General Discharge Information You were seen/treated for: Cellulitis Special Instructions: 1. Please follow up with Dr. Blanco at the wound clinic for cellulitis in your legs within a week of discahrge. 2. Please follow up with Dr. Ellis within a week of discahrge. 3. Please follow up with Dr. Mcarthur (road traffic controller) within 1-2 weeks of discharge. Acute Coronary Syndrome Inclusion Criteria At DC or during hospital stay patient has or had the following: ACS DIAGNOSIS No Discharge Core Measures Meds if any: Prescribed or Continued at Discharge Meds if any: NOT Prescribed or Continued at Discharge Congestive Heart Failure Inclusion Criteria At DC or during hospital stay patient has or had the following: CHF DIAGNOSIS No Discharge Core Measures Meds if any: Prescribed or Continued at Discharge Meds if any: NOT Prescribed or Continued at Discharge Cerebrovascular accident Inclusion Criteria At DC or during hospital stay patient has or had the following: CVA/TIA Diagnosis No Discharge Core Measures Meds if any: Prescribed or Continued at Discharge Meds if any: NOT Prescribed or Continued at Discharge Venous thromboembolism Inclusion Criteria VTE Diagnosis No VTE Type NONE VTE Confirmed by (Test) NONE Discharge Core Measures - Per Current guidelines, there needs to be overlap - treatment for the first 5 days of Warfarin therapy. - If discharged on Warfarin prior to 5 days of - overlap therapy, the patient will need to be - assessed for post discharge needs including - *Post discharge parental anticoagulation - *Warfarin and/or parental anticoagulation education - *Follow up date to check INR post discharge At least 5 days overlap therapy as Inpatient No Meds if any: Prescribed or Continued at Discharge Note: Overlap Therapy is Warfarin and Anticoagulant Meds if any: NOT Prescribed or Continued at Discharge
--- NOTE | 2016-09-11 14:18 | NUR ---
PATIENT AMBULATED IN HALLWAY ON ROOM AIR MAINTAINING O2 SAT 88-91%
--- NOTE | 2016-09-11 14:35 | PN- Housestaff ---
See Addendum Subjective Follow-up For: Cellulitis Subjective: Patient seen and examined at bedside. No acute events overnight. Reports reduced swelling in his legs. No new complaints, although patient is requiring ambulation with exertion. Denies shortness of breath. Remains alert, awake and oriented x 3, in no acute distress. Denies cough, headache, fever, chills, chest pain, palpitations, nausea, vomiting, diarrhea, blurred/double vision, dizziness /lightheadedness. Review of Systems Constitutional: Reports: see HPI. Objective Last 24 Hrs of Vital Signs/I&O Vital Signs Date Time Temp Pulse Resp B/P Pulse O2 O2 Flow FiO2 Ox Delivery Rate 09/11 1043 Nasal 2.0L Cannula 09/11 904 140/70 09/11 0839 98.4 76 18 136/60 94 Nasal 2.0L Cannula 09/11 0012 97.9 82 18 138/60 94 Room Air 09/11 0000 94 Nasal 2.0L Cannula 09/10 1555 98.5 84 20 140/64 95 Nasal 2.0L Cannula 09/10 1440 Nasal 2.0L Cannula Intake & Output 09/11 1600 09/11 0800 09/11 0000 Intake Total 600 300 300 Output Total 600 Balance 600 -300 300 Intake, IV 100 100 Intake, Oral 500 300 200 Output, Urine 600 Physical Exam General Appearance: Alert, Oriented X3, Cooperative, No Acute Distress Assessment/Plan Assessment: Mr. Layne is a 79-year-old gentleman with a past medical history significant for PVD, CAD s/p right carotid artery endarterectomy, HTN, HLD, stroke, NIDDM, CKD stage 3B, Parkinson's disease and depression, last admitted in [place] in March 2015 for chronic venous insufficiency, who presented with a new onset of erythema and edema with mild tenderness and pruritis in the left lower extremity for 1 day, most likely 2/2 cellulitis. # Cellulitis His lower extremity edema and erythema are most likely 2/2 cellulitis superimposed on chronic erythematous vesicular lesions in the setting of chronic venous insufficiency/edema. Doppler venous of both LEs - no evidence of DVT. Patient received 1 doses of IV Lasix 80mg yesterday. Wounds look much better with reduced edema/erythema, no active drainage/weeping. * Continue IV Unasyn - day 4, transition to Keflex to complete 10 days * Continue IV Lasix 40mg QD * Vitals per protocol, monitor hemodynamics * Keep legs elevated * Wound consulted, cont to appreciate recs * Adequate pain control with IV Dilaudid 0.4mg Q4P severe pain and Percocet 1tab Q6P moderate pain # Acute hypoxic respiratory failure Patient desatting to 84% after ambulation. Patient is asymptomatic otherwise. Maintaining 93% on RA. Hypoxia of unclear etiology. No signs of heart failure ( S3, peripheral edeam, JVD abscent). No signs of COPD or asthma (CTA on lung exam and no respiratory sxs). PE unlikely given the recent Doppler which showed no evidence of DVTs. * Follow echocardiogram * Repeat CXR * Check D-dimer, repeat pro-BNP # Cardiac history: HTN, HLD Patient has a h/o hypertension. In the ED patient's systolic blood pressure is in the range of 160-180s. * Continue home med metoprolol XL 25 mg daily * Continue home med Lipitor 40 mg daily * Lasix as per above-mentioned plan # Diabetes * Novolog SSI with accuchecks before each meal and at bedtime * Diabetic diet * Cont home med gabapentin 300mg PO qHS for neuropathic pain # History of Parkinson's disease & Depression * Cont home med Carbidopa/Levodopa 1 tab QD * Cont home med Zoloft 100mg PO daily - Diabetic diet - Mild pain pathway - DVT prophylaxis: SQ heparin - DNR/DN Problem List: 1. Leg edema 2. Cellulitis 3. Venous stasis dermatitis of both lower extremities 4. Parkinson disease 5. DVT prophylaxis 6. Diabetes 7. Hypertension Pain Ratin Pain Location: 0 Pain Goal: Remain pain free Pain Plan: Mild pain pathway Tomorrow's Labs & Rationales: BEP to trend K in the setting of recent kypokalemia
--- NOTE | 2016-09-11 15:41 | RADIOLOGY REPORT ---
EXAMINATION: XR PORTABLE CHEST CLINICAL INFORMATION: Acute hypoxic respiratory failure. COMPARISON: 09/10/2016 as well as a study dating back to 03/06/2015. TECHNIQUE: Portable view of the chest was obtained. FINDINGS: The current study is even more suboptimal and underexposed when compared to the prior study. Once again seen is cardiomegaly with low lung volumes. It is difficult to exclude an abnormality at the left lung base. It should be noted that on the study from 03/06/2015, there was an excellent inspiratory effort with better expansion of the lungs. IMPRESSION: Cardiomegaly with hypoexpanded lungs. Limitations as described above.
[2016-09-11 16:48] VITALS: BP 148/62
[2016-09-12 00:40] VITALS: BP 138/66
--- NOTE | 2016-09-12 06:19 | PN- Housestaff ---
See Addendum Subjective Follow-up For: Cellulitis Subjective: Patient seen and examined at bedside. Patient feels sleepy because of Benadryl. Otherwise reports improvement in his leg wounds. Patient desatting at rest this morning. Denies shortness of breath however. Not in any acute distress. Denies cough, headache, fever, chills, chest pain, palpitations, nausea, vomiting, diarrhea, blurred/double vision, dizziness/lightheadedness. No acute events overnight. Review of Systems Constitutional: Reports: see HPI. Objective Last 24 Hrs of Vital Signs/I&O Vital Signs Date Time Temp Pulse Resp B/P Pulse O2 O2 Flow FiO2 Ox Delivery Rate 09/12 1103 93 Nasal 1.0L Cannula 09/12 1025 87 Room Air 09/12 0915 95 160/80 09/12 0858 98.3 65 22 134/70 91 Nasal 1.0L Cannula 09/12 0803 91 Nasal 1.0L Cannula 09/12 0800 93 Nasal 1.0L Cannula 09/12 0800 86 Room Air 09/12 0040 97.9 75 18 138/66 98 Nasal 2.0L Cannula 09/12 0000 98 Nasal 2.0L Cannula 09/11 1648 98.8 83 18 148/62 94 Nasal 1.0L Cannula 09/11 1600 94 Nasal 1.0L Cannula Intake & Output 09/12 1600 09/12 0800 09/12 0000 Intake Total 100 600 Output Total 750 Balance -750 100 600 Intake, IV 100 Intake, Oral 600 Output, Urine 750 Physical Exam General Appearance: Alert, Oriented X3, Cooperative, No Acute Distress Other Physical Findings: Skin - RLE: circumferential erythema with dry wounds size decreasing from previous exam. Trace pitting edema with no TTP. Constanza's sign negative. - LLE: small erythema with warmth to touch and no TTP. No pitting edema. No active drainage or weeping. HEENT Atraumatic, PERRLA, EOMI, Mucous Membr. moist/pink Neck Supple, No JVD, No LAD Cardiovascular Regular Rate, Normal S1, Normal S2, No Murmurs, Gallops, Rubs Lungs Clear to Auscultation, Normal Air Movement Abdomen Normal Bowel Sounds, Soft, No Tenderness Neurological Normal Speech, Strength at 5/5 X4 Ext, Sensation Intact, Cranial Nerves 3-12 NL Extremities No Cyanosis, Normal Pulses, 2+ pitting edema in RLE, 1+ in LLE Current Medications: Current Medications Sig/Brent Start time Last Medication Dose Route Stop Time Status Admin Acetaminophen 650 MG Q6P PRN 09/08 1630 AC PO Ampicillin Sodium/ 1,500 MG Q12H 09/10 1300 AC 09/12 Sulbactam Sodium IV 1259 Sodium Chloride 100 ML Atorvastatin Calcium 40 MG DAILY 09/09 1000 AC 09/12 PO 0915 Carbidopa/Levodopa 1 TAB BID 09/08 2200 AC 09/12 PO 0914 Diphenhydramine HCl 12.5 MG Q6P PRN 09/12 0900 DC PO Diphenhydramine HCl 25 MG Q6P PRN 09/09 0100 DC 09/12 PO 0631 Furosemide 80 MG QAM 09/13 1000 AC PO Furosemide 40 MG QPM 09/12 2200 AC PO Furosemide 40 MG ONCE ONE 09/11 1900 DC 09/11 IV 09/11 1901 1913 Furosemide 40 MG DAILY 09/09 1800 DC 09/12 IV 0915 Gabapentin 300 MG AT BEDTIME 09/08 2200 AC 09/11 PO 2101 Heparin Sodium 5,000 UNIT Q8 09/08 2200 AC 09/12 (Porcine) SC 0603 Hydromorphone HCl 0.5 MG Q4 PRN 09/08 1630 AC IV Hydroxyzine HCl 10 MG TID 09/12 1000 AC 09/12 PO 1255 Insulin Aspart 0 .[BEDTIME] 09/10 2145 AC SC Insulin Aspart 0 TIDAC 09/10 1200 AC 09/12 SC 1256 Metoprolol Succinate 25 MG DAILY 09/09 1000 AC 09/12 PO 0915 Omeprazole 40 MG DAILY AC 09/09 0700 AC 09/12 PO 0603 Oxycodone/ 1 TAB Q6P PRN 09/08 1630 AC 09/11 Acetaminophen PO 1732 Patient Medication 1 ED .STK-MED ONE 09/11 1345 DC Teaching ED 09/11 1346 Sertraline HCl 100 MG DAILY 09/09 1000 AC 09/12 PO 0915 Last 24 Hrs of Lab/Corky Results Last 24 Hrs of Labs/Mics: Laboratory Tests 09/12/16 0650: Anion Gap 11, Estimated GFR 37 L, BUN/Creatinine Ratio 13.9 09/11/16 1444: Ioa-R-Azqsryopwho Pept 816 H Assessment/Plan Assessment: Mr. Layne is a 79-year-old gentleman with a past medical history significant for PVD, CAD s/p right carotid artery endarterectomy, HTN, HLD, stroke, NIDDM, CKD stage 3B, Parkinson's disease and depression, last admitted in [place] in March 2015 for chronic venous insufficiency, who presented with a new onset of erythema and edema with mild tenderness and pruritis in the left lower extremity for 1 day, most likely 2/2 cellulitis. # Cellulitis His lower extremity edema and erythema are most likely 2/2 cellulitis superimposed on chronic erythematous vesicular lesions in the setting of chronic venous insufficiency/edema. Doppler venous of both LEs - no evidence of DVT. Patient received 1 doses of IV Lasix 80mg yesterday. Wounds look much better with reduced edema/erythema, no active drainage/weeping. * Continue IV Unasyn - day 4, transition to Keflex on d/c to complete 10 days * Give IV Lasix 40mg this mornign and then change to PO Lasix at home dose * Vitals per protocol, monitor hemodynamics * Keep legs elevated * Wound consulted, cont to appreciate recs * Adequate pain control with IV Dilaudid 0.4mg Q4P severe pain and Percocet 1tab Q6P moderate pain # Acute hypoxic respiratory failure Patient desatting to 84% after ambulation. Patient is asymptomatic otherwise. Maintaining 93% on RA. Hypoxia of unclear etiology. No signs of heart failure ( S3, peripheral edeam, JVD abscent). No signs of COPD or asthma (CTA on lung exam and no respiratory sxs). PE unlikely given the recent Doppler which showed no evidence of DVTs. * Follow echocardiogram - Diffuse thickening (sclerosis) of the aortic valve cusps without reduced excursion. Mild concentric left ventricular hypertrophy. Trace mitral regurgitation. Normal left ventricular ejection fraction visually estimated at >65. * Repeat CXR (09/11) - stable cardiomegaly * Patient instructed to follow up outpatient with real estate attorney Dr. Nichole Mcarthur # Cardiac history: HTN, HLD Patient has a h/o hypertension. In the ED patient's systolic blood pressure is in the range of 160-180s. * Continue home med metoprolol XL 25 mg daily * Continue home med Lipitor 40 mg daily * Lasix as per above-mentioned plan # Diabetes * Novolog SSI with accuchecks before each meal and at bedtime * Diabetic diet * Cont home med gabapentin 300mg PO qHS for neuropathic pain # History of Parkinson's disease & Depression * Cont home med Carbidopa/Levodopa 1 tab QD * Cont home med Zoloft 100mg PO daily - Diabetic diet - Mild pain pathway - DVT prophylaxis: SQ heparin - DNR/DN Problem List: 1. Cellulitis of right lower extremity 2. Hypertension 3. Diabetes 4. DVT prophylaxis 5. Parkinson disease 6. Venous stasis dermatitis of both lower extremities 7. Hypokalemia 8. Cellulitis 9. Chronic ulcer of leg 10. Leg edema Pain Ratin Pain Location: 0 Pain Goal: Remain pain free Pain Plan: Mild pathway Tomorrow's Labs & Rationales: None
--- NOTE | 2016-09-12 08:34 | PN- Wound Care ---
Subjective Subjective: Patient is no complaints lower extremity right leg wound is improved with moisture and slough has for the most part been able to be removed, there continues to be faint erythema which is likely related to venous insufficiency Objective Vital Signs and I&Os Vital Signs Result Date Time Pulse Ox 91 09/12 802 O2 Delivery Nasal Cannula 09/12 802 O2 Flow Rate 1.0L 09/12 802 B/P 138/66 09/12 39 Temp 97.9 09/12 39 Pulse 75 09/12 39 Resp 18 09/12 39 Intake & Output 09/12 0000 09/11 1600 09/11 799 Intake Total 600 600 300 Output Total 600 Balance 600 600 -300 Intake, IV 100 Intake, Oral 600 500 300 Output, Urine 600 Patient 180 lb Weight Mr. Layne remains afebrile there is trace edema right lower extremity ulcer appears improved with removal of superficial slough. There is faint residual erythema Impression/Plan Impression/Plan Impression/Plan: 80-year-old gentleman with probable peripheral vascular disease secondary to diabetes and chronic venous insufficiency has a nonhealing ulcer of the right lower extremity present on admission. The chronic erythema is likely related to venous insufficiency rather than cellulitis. Patient requires further evaluation of peripheral vascular disease. Wound care can be Xeroform and gauze to soften slough with daily cleansing and leg elevation. Continue current wound care and leg elevation. Patient can be followed in the wound care center to complete evaluation of possible peripheral vascular disease and treat venous insufficiency
[2016-09-12 08:58] VITALS: BP 134/70
[2016-09-12] MEDS ORDERED: DIPHENHYDRAMINE25 M4 PO (10:28)
[2016-09-12] MEDS ORDERED: KEFLEX500 M1 PO (10:28)
[2016-09-12] MEDS ORDERED: HYDROXYZINE HCL10 M1 PO (10:47)
--- NOTE | 2016-09-12 10:59 | Discharge Summary ---
Visit Information Visit Dates Admission Date: 09/08/16 Discharge Date: 09/12/16 Hospital Course Course Attending Physician: BHAVESH HINTON M.D Primary Care Physician: LISSETT CASTRO MD Hospital Course: Mr. Layne is a 79-year-old gentleman with a past medical history significant for PVD, CAD s/p right carotid artery endarterectomy, HTN, HLD, stroke, NIDDM, CKD stage 3B, Parkinson's disease and depression, last admitted in [place] in March 2015 for chronic venous insufficiency, who presented with a new onset of erythema and edema with mild tenderness and pruritis in the left lower extremity Assessment 1. Cellulitis of both lower extremities (with wounds and pruritus of the lower extremities) 2. Acute Hypoxic Respiratory failure/deconditioning 3. T2 DM 4. Parkinson's disease 5. Chronic Venous Insufficiency 6. Stage 3B CKD # LE Cellulitis and Chronic Venous insufficiency His lower extremity edema and erythema are most likely 2/2 cellulitis superimposed on chronic erythematous vesicular lesions in the setting of chronic venous insufficiency/edema. Doppler venous of both LEs show no evidence of DVT. Patient received IV Unasyn and IV Lasix. Pain control was with percocet and dilaudid PRN and he got benadryl for his LE pruritus. Wounds look much better with reduced edema/erythema, no active drainage/weeping. He will be switched to Po Keflex to complete 10 days. Continue his home dose of po lasix and will be given hydroxyzine for pruitus. # Acute hypoxic respiratory failure Patient was noticed to destaurate on ambulation but improved on Oxygen. He reports no prior history of cardiac disease and has never seen a clam bed worker. He is currently maintaining 93% on RA at rest. Hypoxia is of unclear etiology but possibly due to a cardiomyopathy, CXR shows cardiomegaly. He does take a very high dose of lasix (60mg am and 40mg pm). No current signs of heart failure (S3, peripheral edeam, JVD abscent). No signs of COPD or asthma (CTA on lung exam and no respiratory sxs). PE unlikely given the recent Doppler which showed no evidence of DVTs. He will be discharged on 1L of oxygen to STR which can be tapered off as tolerated. # Diabetes Stable on Novolog SSI with accuchecks before each meal and at bedtime. Will resume oral hypoglycemics on discharge. Continue Diabetic diet. Cont home med gabapentin 300mg PO qHS for neuropathic pain. Echocardiogram results do not show a systolic or diastolic dysfunction and EF is >65%. We will refer to him to a clam bed worker for follow up of mild concentric hypertrophy. # Hypertension Continue his home dose of metoprolol 25mg daily. # History of Parkinson's disease & Depression Continue home med Carbidopa/Levodopa 1 tab QD. Cont home med Zoloft 100mg PO daily # Lower extremity wounds He will need follow up with physician specialist Dr. Blanco; referral given. Continue daily wound dressing. # Stage 3B CKD Stable. Continue close monitoring and avoid nephrotoxic medications. # Deconditioning We will discharge him to [facility] for PT and reconditioning. Complications: none Allergies: Uncoded Allergies: SOAP (Mild, RASH-DEODERANT SOAPS 03/10/15) Significant Procedures: ECHOCARDIOGRAM Left Ventricle Normal size left ventricle. Mild concentric left ventricular hypertrophy. Normal left ventricular ejection fraction visually estimated at >65 %. Normal left ventricular diastolic filling pattern for age. Right Ventricle The right ventricle is normal in size and function. Right Atrium The right atrium is normal in size. Left Atrium Left atrial size at the upper limits of normal. Mitral Valve Mild thickening/calcification of the mitral valve leaflets. Mild mitral annular calcification. Trace mitral regurgitation. Aortic Valve Diffuse thickening (sclerosis) of the aortic valve cusps without reduced excursion. No aortic stenosis. No aortic regurgitation. Tricuspid Valve The tricuspid valve is normal in structure and function. There is trace tricuspid regurgitation. Pulmonary artery systolic pressure is normal. Pulmonic Valve Pulmonic valve not well visualized. No pulmonic regurgitation. Pericardium Normal pericardium without effusion. No pleural effusion. Great Vessels The aortic root and ascending aorta are upper limits of normal in diameter. CONCLUSIONS Mild concentric left ventricular hypertrophy. Normal left ventricular ejection fraction visually estimated at >65 Left atrial size at the upper limits of normal. Mild thickening/calcification of the mitral valve leaflets. Mild mitral annular calcification. Trace mitral regurgitation. Diffuse thickening (sclerosis) of the aortic valve cusps without reduced excursion. No aortic stenosis. Pulmonary artery systolic pressure is normal. The aortic root and ascending aorta are upper limits of normal in diameter. Pertinent Lab Results: Laboratory Tests 09/12 09/11 09/11 09/11 09/11 0650 1444 1150 1135 0625 Chemistry Sodium (137 - 145 mmol/L) 139 141 Potassium (3.5 - 5.1 mmol/L) 3.9 4.2 Chloride (98 - 107 mmol/L) 92 L 95 L Carbon Dioxide (22 - 30 mmol/L) 36 H 36 H Anion Gap (5 - 16) 11 10 BUN (9 - 20 mg/dL) 25 H 25 H Creatinine (0.7 - 1.2 mg/dL) 1.8 H 1.8 H Estimated GFR (>60 ml/min) 37 L 37 L BUN/Creatinine Ratio (7 - 25 %) 13.9 13.9 [id number]-[id number] Pept (<125 pg/mL) 816 H Cancelled Coagulation D-Dimer (70 - 232 ng/ml) 501 H 09/10 09/09 0710 1140 Chemistry Sodium (137 - 145 mmol/L) 139 139 Potassium (3.5 - 5.1 mmol/L) 3.4 L 3.7 Chloride (98 - 107 mmol/L) 92 L 91 L Carbon Dioxide (22 - 30 mmol/L) 34 H 35 H Anion Gap (5 - 16) 13 13 BUN (9 - 20 mg/dL) 28 H 27 H Creatinine (0.7 - 1.2 mg/dL) 1.9 H 1.9 H Estimated GFR (>60 ml/min) 34 L 34 L BUN/Creatinine Ratio (7 - 25 %) 14.7 14.2 Hematology CBC w Diff NO MAN DIFF REQ WBC (4.8 - 10.8 /CUMM) 8.3 RBC (4.70 - 6.10 /CUMM) 4.69 L Hgb (14.0 - 18.0 G/DL) 14.3 Hct (42 - 52 %) 43.4 MCV (80.0 - 94.0 FL) 92.6 MCH (27.0 - 31.0 PG) 30.6 RDW (11.5 - 14.5 %) 16.0 H Plt Count (130 - 400 /CUMM) 144 MPV (7.4 - 10.4 FL) 8.4 Gran % (42.2 - 75.2 %) 79.2 H Lymphocytes % (20.5 - 51.1 %) 10.4 L Monocytes % (1.7 - 9.3 %) 7.5 Eosinophils % (0 - 5 %) 2.6 Basophils % (0.0 - 2.0 %) 0.3 Absolute Granulocytes (1.4 - 6.5 /CUMM) 6.6 H Absolute Lymphocytes (1.2 - 3.4 /CUMM) 0.9 L Absolute Monocytes (0.10 - 0.60 /CUMM) 0.6 Absolute Eosinophils (0.0 - 0.7 /CUMM) 0.2 Absolute Basophils (0.0 - 0.2 /CUMM) 0 PUBS MCHC (33.0 - 37.0 G/DL) 33.0 Disposition Summary Disposition Principal Diagnosis: Bilateral LE cellulitis, Acute hypoxic respiratory failure, Chronic Venous Insufficiency Additional Diagnosis: Parkinson's disease, Diabetes, Discharge Disposition: SNF Discharge Instructions General Discharge Information Code Status: Full Code Patient's Diet: diabetic Patient's Activity: as tolerated Follow-Up Instructions/Appts: 1. Please follow up with Dr. Blanco at the wound clinic for cellulitis in your legs within a week of discaharge. 2. Please follow up with Dr. Castro within a week of discahrge. 3. Please follow up with Dr. Benjamin (clam bed worker) within 1 week of discharge. Medications at Discharge Discharge Medications: Stop taking the following medications: Doxycycline Hyclate (Vibramycin) 100 MG CAPSULE ORAL TWICE DAILY Qty = 20 Continue taking these medications: Multivitamin and [id number] (Centrum Silver) 1 TAB TAB 1 Tablet ORAL DAILY Comments: Last Taken:03/12/15 Time:0915 PER PT MED LIST Gabapentin (Gabapentin) 300 MG CAPSULE 1 Capsule ORAL TAKE AT BEDTIME Qty = 60 Comments: Last Taken: 09/11/16 Time: 2100PM Atorvastatin Calcium (Atorvastatin Calcium) 40 MG TABLET 1 Tablet ORAL DAILY Qty = 90 Comments: Last Taken: 09/12/16 Time: 9AM Furosemide (Furosemide) 40 MG TABLET 2 Tablet ORAL Every Morning Qty = 120 Comments: IV DOSE GIVEN Last Taken: 09/12/16 Time: 9AM Furosemide (Lasix) 40 MG TABLET 1 Tablet ORAL Every night Comments: NOT GIVEN IN HOSPITAL Sertraline HCl (Sertraline HCl) 100 MG TABLET 1 Tablet ORAL DAILY Qty = 30 Comments: Last Taken: 09/12/16 Time: 9AM Carbidopa/Levodopa (Carbidopa-Levodopa 25-100 Tab) 25 MG-100 MG TABLET 1 Tablet ORAL TWICE DAILY Qty = 180 Comments: Last Taken: 09/12/16 Time: 9AM Glipizide (Glipizide ER) 2.5 MG TAB.ER.24 1 Tablet ORAL TWICE DAILY Qty = 180 Comments: NOT GIVEN IN HOSPITAL Metoprolol Succinate (Metoprolol Succinate) 25 MG TAB 1 Tablet ORAL DAILY Qty = 90 Comments: Last Taken: 09/12/16 Time: 9AM Pantoprazole Sodium (Pantoprazole Sodium) 40 MG TABLET.DR 1 Tablet ORAL DAILY Qty = 90 Comments: NOT GIVEN IN HOSPITAL Potassium Chloride (Potassium Chloride) 20 MEQ TAB.ER.PRT 1 Tablet ORAL TWICE DAILY Qty = 180 Comments: NOT GIVEN IN HOSPITAL Start taking the following new medications: Cephalexin (Keflex) 500 MG CAPSULE 1 Capsule ORAL TWICE DAILY Days = 5 No Refills Instructions: STOP AFTER LAST DOSE ON 09/18. Comments: NOT GIVEN IN HOSPITAL Hydroxyzine HCl (Hydroxyzine HCl) 10 MG TABLET 10 Milligram ORAL EVERY 8 HOURS NEEDED Days = 14 No Refills Comments: Last Taken: 09/12/16 Time: 1255PM Copies To: GLORIA ZARCO,LISSETT Monk Attending Review Statement Documenting Attending: BHAVESH HINTON M.D Other Findings: Reviewed.
--- NOTE | 2016-09-12 13:12 | ECHOCARDIOGRAM REPORT ---
BRINDA CHAVIRA Age: 80 : 1935 Gender: M Exam Date: 09/12/2016 12:07 Exam Location: [facility] Ht (in): 63 Wt (lb): 180 BSA: 1.94 BP: 160 / 80 Ordering Physician: NELLIE HIGH MD Referring Physician: NELLIE HIGH MD Technologist: Dae Ardon [facility] Room Number: [id number] Indications: RESPIRATORY FAILURE Rhythm: Sinus Technical Quality: FINDINGS Left Ventricle Normal size left ventricle. Mild concentric left ventricular hypertrophy. Normal left ventricular ejection fraction visually estimated at >65 %. Normal left ventricular diastolic filling pattern for age. Right Ventricle The right ventricle is normal in size and function. Right Atrium The right atrium is normal in size. Left Atrium Left atrial size at the upper limits of normal. Mitral Valve Mild thickening/calcification of the mitral valve leaflets. Mild mitral annular calcification. Trace mitral regurgitation. Aortic Valve Diffuse thickening (sclerosis) of the aortic valve cusps without reduced excursion. No aortic stenosis. No aortic regurgitation. Tricuspid Valve The tricuspid valve is normal in structure and function. There is trace tricuspid regurgitation. Pulmonary artery systolic pressure is normal. Pulmonic Valve Pulmonic valve not well visualized. No pulmonic regurgitation. Pericardium Normal pericardium without effusion. No pleural effusion. Great Vessels The aortic root and ascending aorta are upper limits of normal in diameter. CONCLUSIONS Mild concentric left ventricular hypertrophy. Normal left ventricular ejection fraction visually estimated at >65 Left atrial size at the upper limits of normal. Mild thickening/calcification of the mitral valve leaflets. Mild mitral annular calcification. Trace mitral regurgitation. Diffuse thickening (sclerosis) of the aortic valve cusps without reduced excursion. No aortic stenosis. Pulmonary artery systolic pressure is normal. The aortic root and ascending aorta are upper limits of normal in diameter. Jose Mcarthur M.D. (Electronically Signed) Final Date: 12 September 2016 13:12 MEASUREMENTS (Male / Female) Normal Values 2D ECHO LV Diastolic Diameter PLAX 3.9 cm 4.2 - 5.9 / 3.9 - 5.3 cm LV Systolic Diameter PLAX 2.7 cm 2.1 - 4.0 cm LV Fractional Shortening PLAX 30.8 % 25 - 46 % LV Ejection Fraction 2D Teich 59.0 % IVS Diastolic Thickness 1.1 cm LVPW Diastolic Thickness 1.2 cm LV Relative Wall Thickness 0.6 RV Internal Dim ED PLAX 3.5 cm 1.9 - 3.8 cm LVOT Diameter 1.9 cm Aortic Root Diameter 3.7 cm LA Systolic Diameter LX 3.3 cm 3.0 - 4.0 / 2.7 - 3.8 cm LV Ejection Fraction MOD BP 61.5 % >= 55 % LV Diastolic Length 4C 7.4 cm 6.9 - 10.3 cm LV Diastolic Area 4C 26.5 cm LV Diastolic Volume MOD 4C 79.0 cm LV Ejection Fraction MOD 4C 68.4 % LV Stroke Volume MOD 4C 54.0 cm LV Systolic Length 4C 6.1 cm LV Systolic Area 4C 12.5 cm LV Systolic Volume MOD 4C 25.0 cm LV Ejection Fraction MOD 2C 49.0 % LV Diastolic Volume 4C AL 80.8 cm 85 - 139 / 69 - 109 cm LV Systolic Volume 4C AL 21.7 cm LV Ejection Fraction 4C AL 73.2 % LV Stroke Volume 4C AL 59.1 cm LV Ejection Fraction 2C AL 51.5 % LA Volume 63.0 cm 18 - 58 / 22 - 52 cm Ascending Aorta Diameter 3.6 cm DOPPLER AV Peak Velocity 137.0 cm/s AV Peak Gradient 7.5 mmHg AV Mean Velocity 90.0 cm/s AV Mean Gradient 4.0 mmHg AV Velocity Time Integral 28.4 cm LVOT Peak Velocity 96.3 cm/s LVOT Peak Gradient 3.7 mmHg LVOT Mean Velocity 65.1 cm/s LVOT Mean Gradient 2.0 mmHg LVOT Velocity Time Integral 23.1 cm LVOT Stroke Volume 65.5 cm AV Area Cont Eq vti 2.3 cm AV Area Cont Eq pk 2.0 cm MV Peak Velocity 105.0 cm/s MV Peak Gradient 4.4 mmHg MV Mean Velocity 61.5 cm/s MV Mean Gradient 2.0 mmHg Mitral E Point Velocity 88.8 cm/s Mitral A Point Velocity 111.0 cm/s Mitral E to A Ratio 0.8 MV PHT Velocity 87.5 cm/s MV Deceleration [place] 307.0 cm/s MV Pressure Half Time 85.5 ms MV Area PHT 2.6 cm MV Deceleration Time 127.0 ms TR Peak Velocity 229.0 cm/s TR Peak Gradient 21.0 mmHg PV Peak Velocity 110.0 cm/s PV Peak Gradient 4.8 mmHg PV Mean Velocity 75.9 cm/s PV Mean Gradient 3.0 mmHg PV Velocity Time Integral 20.8 cm LV E' Lateral Velocity 9.7 cm/s Mitral E to LV E' Lateral Ratio 9.2 LV E' Septal Velocity 9.1 cm/s Mitral E to LV E' Septal Ratio 9.8
== END 2016-09-12 18:00 | DRG 602 ==
LOC: ERH 11:47 → 2NB 14:23 → ERHI 14:23 → 2NB 17:03
PROVIDERS: Physician Assistant Medical; Student in an Organized Health Care Education/Training Program; ADMIT Internal Medicine
DX: L03.116 Cellulitis of left lower limb (principal); J96.01 Acute respiratory failure with hypoxia; I42.9 Cardiomyopathy, unspecified; L97.219 Non-pressure chronic ulcer of right calf with unspecified severity; I11.9 Hypertensive heart disease without heart failure; L03.115 Cellulitis of right lower limb; I87.2 Venous insufficiency (chronic) (peripheral); I25.10 Atherosclerotic heart disease of native coronary artery without angina pectoris; E78.5 Hyperlipidemia, unspecified; E11.9 Type 2 diabetes mellitus without complications; I13.10 Hypertensive heart and chronic kidney disease without heart failure, with stage 1 through stage 4 chronic kidney disease, or unspecified chronic kidney disease; E11.22 Type 2 diabetes mellitus with diabetic chronic kidney disease; N18.3 Chronic kidney disease, stage 3 (moderate); G20 Parkinson's disease
CPT/HCPCS: 2NBSP; 36415; 82436; 87040; 90662; 93005; 93010; 93306; 93970; 96374; 96375; 97001-GP; 97110-GO; 97116-GO; 97162-GP; 97530-GO; J1644; J1815; J1940